=== PATIENT | female | born 1965 | race Caucasian/White ===

== ENCOUNTER 2017-09-27 08:38 | Emergency (ER) | payer OTHER ==
[~2017-09-27] VITALS: Ht 157.5 cm; Wt 63.5 kg
[2017-09-27 08:59] VITALS: BP_SYST 154
--- NOTE | 2017-09-27 09:05 | NUR ---
Patient to ER bed 1 to gown for evaluation. Side rails up. Report given to Harjinder REZA.
--- NOTE | 2017-09-27 09:09 | NUR ---
PT AAOX4, ABLE TO VERBALIZE NEEDS. PT BROUGHT IN BY WHEELCHAIR. PT STATES HER LEFT ANKLE HAS BEEN HURTING SINCE LAST NIGHT. PT STATES SHE WAS STRETCHING HER ANKLE WHEN PAIN STARTED. PT STATES SHE HAS NOT BEEN ABLE TO PUT WEIGHT ON ANKLE SINCE LAST NIGHT AND WHEN SHE TRIES TO MOVE IT, PAIN IS 10/10. PT DENIES PAIN WHEN SHE IS NOT MOVING. NO OTHER COMPLAINTS/INJURIES PER PT OR NOTED.
--- NOTE | 2017-09-27 09:11 | NUR ---
ER at bedside examining patient.
[2017-09-27] MEDS: IBUPROFEN 600 MG TABLET PO ONE (09:20)
--- NOTE | 2017-09-27 09:20 | NUR ---
PT TAKEN OFF UNIT FOR XR.
--- NOTE | 2017-09-27 10:30 | NUR ---
Patient given written and verbal discharge instructions and verbalizes understanding. ER MD discussed with patient the results and treatment provided. Patient in stable condition. ID arm band removed. CRUTCH TEACHING COMPLETED, PT RETURNED DEMONSTRATION. Rx of MOTRIN given. Patient educated on pain management and to follow up with PMD. Pain Scale 0/10. Opportunity for questions provided and answered.
[2017-09-27 10:37] VITALS: BP_SYST 154
== END 2017-09-27 10:30 | disposition home or self-care (01) ==
LOC: SED 08:38
DX: M25.572 Pain in left ankle and joints of left foot (principal); W18.40XA Slipping, tripping and stumbling without falling, unspecified, initial encounter; Y93.89 Activity, other specified; Y92.89 Other specified places as the place of occurrence of the external cause; Y99.8 Other external cause status
CPT/HCPCS: 81025; 99284